=== PATIENT | female | born 2000 | race Caucasian/White ===

== ENCOUNTER → 2021-09-20 19:10 | Observation (INO) ==
[2021-09-20 18:46] LABS: Basophils % 0.2 %; Eosinophils # 0.1 K/mcL (0.0-0.6); Eosinophils % 0.7 %; Hematocrit 33.4 % (35.3-44.9); Hemoglobin 11.4 g/dL (11.5-15.4); Immature Granulocytes % 0.7 % (0-4); Lymphocytes # 1.7 K/mcL (0.6-4.6); Lymphocytes % 13.5 %; Mean Corpuscular HGB Conc 34.1 g/dL (31.6-35.5); Mean Corpuscular Hemoglobin 31.1 pg (28.0-33.3); Mean Corpuscular Volume 91.3 fL (83.0-100.0); Mean Platelet Volume 10.8 fL (9.4-12.4); Monocytes # 0.7 K/mcL (0.0-1.3); Monocytes % 5.5 %; Neutrophils # 10.1 K/mcL (1.6-8.9); Platelet Count 203 K/mcL (140-400); Red Blood Count 3.66 M/mcL (3.82-4.97); Segmented Neutrophils % 79.4 %; White Blood Count 12.8 K/mcL (4.3-11.1)
[2021-09-20 18:55] LABS: Creatinine,Urine 37 mg/dL
[2021-09-20 19:37] LABS: Alanine Aminotransferase 9 Units/L (7-52); Aspartate Amino Transferase 11 Units/L (13-39); BUN/Creatinine Ratio 14 (6-26); Blood Urea Nitrogen 7 mg/dL (6-20); Lactate Dehydrogenase 115 Units/L (140-271); Uric Acid 4.7 mg/dL (2.3-7.6)
== END | disposition home or self-care (01) ==
LOC: 1NENULAB
PROVIDERS: ADMIT Registered Nurse; ATTEND Registered Nurse

== ENCOUNTER → 2021-10-18 10:19 | Observation (INO) ==
[2021-10-18 09:42] LABS: Bilirubin,Urine Negative (Negative); Blood,Urine Negative (Negative); Clarity,Urine Clear (Clear); Color,Urine Colorless (Yellow); Glucose,Urine (UA) Normal (Normal); Ketones,Urine Negative (Negative); Leukocyte Esterase,Urine Negative (Negative); Nitrite,Urine Negative (Negative); Protein,Urine Negative (Neg-Trace); Specific Gravity,Urine 1.005 (1.010-1.025); Urobilinogen,Urine Normal (Normal)
[2021-10-18 10:58] LABS: Candida DNA Not Detected (Not Detect); Gardnerella DNA Not Detected (Not Detect); Trichomonas DNA Not Detected (Not Detect)
== END | disposition home or self-care (01) ==
LOC: 1NENULAB
PROVIDERS: ADMIT Advanced Practice Midwife; ATTEND Advanced Practice Midwife

== ENCOUNTER 2021-10-31 07:41 | Inpatient (IN) ==
[2021-10-31] MEDS ORDERED: EPHEDrine sulfate 50 MG/10 ML VIAL IVP PRN (08:09)
[2021-10-31] MEDS ORDERED: Azithromycin 500 MG in 0.9 % Sodium Chloride 250 ML IVPB PRN (08:32)
[2021-10-31] MEDS ORDERED: Famotidine 20 MG/2 ML VIAL IVP PRN (08:32)
[2021-10-31] MEDS ORDERED: Metoclopramide 10 MG/2 ML VIAL IVP PRN (08:32)
[2021-10-31] MEDS ORDERED: Ondansetron 4 MG/2 ML VIAL IVP PRN (08:32)
[2021-10-31] MEDS ORDERED: Naloxone 0.4 MG/ML INJ IVP PRN (08:32)
[2021-10-31] MEDS ORDERED: miSOPROStoL 25 MCG TABLET PO PRN (08:34)
[2021-10-31] MEDS: Epidural Premix (fent/bupiv) 110 ML EP SCH ×2 (09:11→16:58)
[2021-10-31 09:48] LABS: Amphetamine Screen,Urine Negative ng/mL (Cutoff=1000); Barbiturate Screen,Urine Negative ng/mL (Cutoff=200); Benzodiazepines Screen,Urine Negative ng/mL (Cutoff=200); Cannabinoid Screen,Urine Negative ng/mL (Cutoff = 50); Cocaine Screen,Urine Negative ng/mL (Cutoff= 300); Opiate Screen,Urine Negative ng/mL (Cutoff=300); Phencyclidine Screen,Urine Negative ng/mL (Cutoff=25)
[2021-10-31 09:56] LABS: Basophils % 0.2 %; Eosinophils # 0.1 K/mcL (0.0-0.6); Eosinophils % 0.7 %; Hematocrit 33.3 % (35.3-44.9); Hemoglobin 11.3 g/dL (11.5-15.4); Immature Granulocytes % 0.5 % (0-4); Lymphocytes # 1.3 K/mcL (0.6-4.6); Lymphocytes % 15.5 %; Mean Corpuscular HGB Conc 33.9 g/dL (31.6-35.5); Mean Corpuscular Hemoglobin 30.7 pg (28.0-33.3); Mean Corpuscular Volume 90.5 fL (83.0-100.0); Mean Platelet Volume 10.9 fL (9.4-12.4); Monocytes # 0.4 K/mcL (0.0-1.3); Monocytes % 4.2 %; Neutrophils # 6.6 K/mcL (1.6-8.9); Platelet Count 199 K/mcL (140-400); Red Blood Count 3.68 M/mcL (3.82-4.97); Red Cell Distribution Width 12.2 % (11.5-14.5); Segmented Neutrophils % 78.9 %; White Blood Count 8.4 K/mcL (4.3-11.1)
[2021-10-31] MEDS ORDERED: Oxytocin 30 UNIT/503 ML BAG IVC SCH (10:45)
[2021-10-31] MEDS: Ringers Solution, Lactated 1,000 ML IVC SCH ×2 (11:25→16:58)
[2021-10-31] MEDS: *HR* Nalbuphine 10 MG/ML AMPUL IV PRN ×2 (11:25→15:30)
[2021-10-31] MEDS ORDERED: Ibuprofen 600 MG TABLET PO ONE (23:15)
[2021-11-01] MEDS ORDERED: Ondansetron ODT 4 MG TAB.RAPDIS SL PRN (00:50)
[2021-11-01] MEDS ORDERED: Lanolin 7 G OINT...G. TP PRN (00:50)
[2021-11-01] MEDS ORDERED: Benzocaine/Menthol 56 GM AEROSOL SPRAY TP PRN (00:50)
[2021-11-01] MEDS ORDERED: OXYTOCIN/RINGERS LACTATE 10 UNIT/166.6 ML BAG IVC ONE (00:50)
[2021-11-01] MEDS ORDERED: Rho Immune Globulin 1,500 UNIT SYRINGE IM PRN (00:50)
[2021-11-01] MEDS ORDERED: Oxytocin 30 UNIT/503 ML BAG IVC SCH (00:50)
[2021-11-01] MEDS: Acetaminophen 325 MG TABLET PO SCH ×2 (01:55→09:19)
[2021-11-01] MEDS: Ibuprofen 600 MG TABLET PO SCH ×2 (01:55→09:18)
[2021-11-01] MEDS ORDERED: Prenatal Vit/FA 1 EACH TABLET PO SCH (09:00)
[2021-11-01 16:15] VITALS: TEMP 98.5
[2021-11-01 20:18] VITALS: BP 126/71; PULSE 78; O2SAT 97
== END 2021-11-01 23:30 | disposition home or self-care (01) | DRG 807 ==
LOC: 1NENULAB 07:41 → 1NENUOBS 11-01 00:50
PROVIDERS: ADMIT Registered Nurse; ATTEND Registered Nurse